=== PATIENT | female | born 2005 | race Caucasian/White ===

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

== ENCOUNTER 2025-01-25 05:29 | Emergency (ER) | payer OTHER, SELFPAY ==
--- OUTSIDE RECORDS SUMMARY | 2025-01-25 05:31 | XMS_ITS | Encounter Summary ---
Author Organization [facility] Address [address] [place] [address] Care Team Providers Care Sole Stitcher Hand Name Role Phone Yohan Jacinto MD Primary Care Provider [phone] Reason for Visit * Reason Onset Date Comments Concerns 04/16/2022 Encounter Details Date Type Department Care Team (Late st Contact Info) Description 04/16/2022 Telephone [facility] [place] [address] Nellie Mendes MD [address] [place] [phone] Concerns Social History Tobacco Use Types Packs/Day Years Used Date Smoking Tobacco: Passive Smo ke Exposure - Never Smoker Smokeless Tobacco: Never Comments No Sex and Gender Information Value Date Recorded Sex Assigned at Not on file Legal Sex Female 5:44 AM ANIMAL STUNNER Gender Identity Not on file Sexual Orientation [...] PM CDT No answer @ mom's number, VM is full so unable to LM. * [...] CDT No answer @ number left by momPEEWEE that we returned call * Telephone Encounter [...] on filedocumented in this encounter Care Teams Sole Stitcher Hand Relationship Specialty Start Date End Date Yohan Jacinto MD [address] [place] [address] PCP - General Pediatrics 02/05/22 documented as of this encounter
--- OUTSIDE RECORDS SUMMARY | 2025-01-25 05:31 | XMS_ITS | Clinical Summary ---
Author Organization [facility] Address [address] [facility] [place] [address] Care Team Providers Care Antenna Design Engineer Name Role Phone Yohan Jacinto MD Primary Care Provider [phone] Source Comments [facility],non-owned Affiliates and Associated Physician Practices is amultiple site organization consisting of ambulatory clinics and hospital sitesin [place], [place]. This disclosure is being madepursuant to the Care Everywhere program and may not contain all information available regarding this patient. Last updated 18.[facility] Allergies Active Allergy Reactions Criticality Noted Date [...] document. Alwaysverify current medications with the patient. 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 Gender Identity Not on file Sexual Orientation Not on file Last Filed Vital Signs Vital Sign Reading Time Taken Comments Blood Pressure 122/78 04/30/2022 9:44 AM CDT Pulse 57 02/22/2022 12:45 PM CDT Temperature 36.2 C (97.1 F) 02/22/2022 12:30 PM CDT Respiratory Rate 21 02/22/2022 12:4 [...] - 3-dose series) 2020 CHLAMYDIA/GONORRHEA SCREENING 2021 MENINGOCOCCAL (Group B) VACC INE SHARED DECISION-MAKING (1 of 2 - Standard) 2021 HEPATITIS C SCREENING 08/04/2023 COVID-19 VACCINE (1 - 2023-2 5 season) 2024 DTAP/TDAP/TD VACCINES (1 - Tdap) 2024 HEPATITIS B VACCINE (1 of 3 - 19+ 3-dose series) 2024 DEPRESSION SCREENING 09/16/2024 INFLUENZA VACCINE (Season Ended) 2025 ZOSTER VACCINE (1 of 2) 2055 HIB VACCINE Aged Out No longer eligi ble based on patient's age to complete this topic MENINGOCOCCAL GROUPS A/C/Y/W VACCINE Aged Out No longer eligible b ased on patient's age to complete this topic PNEUMOCOCCAL VACCINE Aged Out No long er eligible based on patient's age to complete this topic Insurance [facility] Care Teams Antenna Design Engineer Relationship Specialty Start Date End Date Yohan Jacinto MD [address] [place], [place] [id number] PCP - General Pediatrics 02/05/22
--- OUTSIDE RECORDS SUMMARY | 2025-01-25 05:31 | XMS_ITS | Data Portability ---
Author Organization [facility] [place] Address [address] [place] [address] Assessment No assessment recorded. Plan of Treatment Reminders Order Date Submit Date Provider Last Modified By Organization Details Last Modified Time Details Appointments None recorded. Lab hsv-2 igg Ab, serum 2024 025 [facility] (Lab), [address], [place], [address], 5 14:14:56 hsv (1+2) Ab, serum [address] (Lab), [address] [place], [address], 5 16:27:27 hsv (1+2) igm, serum [address] (Lab), [address] [place], [address], 5 16:27:27 hsv-1 igg Ab, serum 2024 025 [facility] (Lab), [address], [place], [address], 5 14:14:55 hsv-2 igg Ab, serum [address] (Lab), [address] [place], [address], 5 16:27:27 hbcab (hepatitis B core Ab) igm, serum 2024 025 [facility] (Lab), [address] [facility], [place], [address], 5 14:53:09 HBsAg (hepatitis B surface Ag), serum 2024 025 [facility] (Lab), [address] [facility] [facility], [place], [address], 5 14:53:07 hepatitis C virus Ab, serum 2024 025 [facility] (Lab), [address] [facility] [facility], [place], [address], 5 14:53:06 HIV 1+2 AB + HIV 1 p24 Ag, qualitative immunoassay , serum 2024 025 [facility] (Lab), [address] [facility], [place], [address], 5 14:53:08 RPR (rapid plasma reagin), serum 2024 025 [facility] (Lab), [address] [facility] [facility], [place], [address], 5 14:53:09 beta-HCG, quantitativ e, serum or plasma 2024 025 [facility] (Lab), [address] [facility] [facility], [place], [address], 5 14:53:07 test, urine 2024 025 fransico Solorzano, [address], [place], [address], 5 15:42:14 Referral None recorded. Procedures None recorded. Surgeries None recorded. Imaging None recorded. Medication Orders [facility]altrex 500 mg tablet 2024 025 [id number], [address] [facility] [address] [facility], [place], [place], [id number], 5 09:53:13 Valtrex 1 gram tablet 2024 025 [id number], [address], [place], [place], [id number], 5 09:53:22 Depo-Sound Printer a 150 mg/mL intramuscul ar suspension 2024 025 Not available 16:03:40 Depo-Sound Printer a 150 mg/mL intramuscul ar syringe 2024 025 [id number], [address] [place], [place], [id number], 5 15:33:25 Depo-Sound Printer a 150 mg/mL intramuscul ar suspension 2023 024 Not available 16:03:40 Patient TargetsNo targets recorded. Patient InstructionsNo instructions recorded. Reason for Referral None Reported. Results Created Date Observation Date Name Description Value Unit Range Abnormal Flag Note LastModifiedBy Organization Detail LastModifiedTime 10/27/1910/27/2024 CT/GC AND TRICH OMONA S VAGIN MANDEEP (RRNA ), URINE chlamydia trachomatis, PCR Negati ve negati ve Not Available [facility] (Lab) [address], [place], [address], 10/28/2024 14:48:08 10/27/19 25 10/27/2024 CT/GC AND TRICH OMONA S VAGIN MANDEEP (RRNA ), URINE neisseria gonorrhoeae, PCR Negati ve negati ve Not Available [facility] (Lab) [address], [place], [address], 10/28/2024 14:48:08 10/27/19 25 10/27/2024 CT/GC AND TRICH OMONA S VAGIN MANDEEP (RRNA ), URINE trichomonas vaginalis ribosomal RNA (rrna) Negati ve negati ve Not Available [facility] (Lab) [address] [facility], [place], [address], 10/28/2024 14:48:08 10/27/19 25 10/27/2024 HEPAT ITIS C ANTIB PERLA SCREE N, REFLE X TO CONFI RMATI ON hepatitis C antibody Non-re active non-re active Antib odies to HCV Not Detec amrita, does not exclu de the possi bilit y of expos ure to HCV. Not Available [facility] (Lab) [address] [facility] [facility], [place], [address], 10/28/2024 14:53:06 10/27/19 25 10/27/2024 HEPAT ITIS B SURFA CE ANTIG EN hepatitis B surface antigen Non-re active non-re active This assay was perfo rmed using [employer] reage nts and test kits. Value s obtai boni with other assay metho ds or kits canno t be used inter douglas eably . Not Available [facility] (Lab) [address] [place], [address], 10/28/2024 14:53:07 10/27/19 25 10/27/2024 BHCG, QUANT ITATI VE B-HCG <0.2 mIU/m L 0.0-4. 9 This assay was perfo rmed using [employer] reage nts and test kits. Value s obtai boni with other assay metho ds or kits canno t be used inter douglas eably . Refer ence Range s: Non-p regna nt, preme nopau yeison women : 0.0-4 .9 mIU/m L Postm enopa usal women : 0.0-7 .0 mIU/m L Josselyn l Pregn mariel: Gesta donavan l Age bHCG Conc. - mIU/m L 3 Weeks 5.8 - 71.7 4 Weeks 9.5 - 750 5 Weeks 217-7 138 6 Weeks 158 - 31,79 5 7 Weeks 3,697 - 162,5 63 8 Weeks 32,06 5 - 149,5 71 9 Weeks 63,80 3 - 151,4 10 10 Weeks 46,50 9 - 186,9 77 12 Weeks 27,83 2 - 210,6 12 14 Weeks 13,95 0 - 62,53 0 15 Weeks 12,03 9 - 70,97 1 16 Weeks 9,040 - 56,45 1 17 Weeks 8,175 - 55,86 8 18 Weeks 8,099 - 58,17 6 Not Available [facility] (Lab) [address] [facility], [place], [address], 10/28/2024 14:53:07 10/27/1910/27/2024 HIV 1/2 ANTIG EN/AN TIBOD Y, REFLE X CONFI RMATI ON HIV antigen/anti body Nonrea ctive nonrea ctive HIV-1 antig en and HIV-1 /HIV- 2 antib odies were not detec amrita. No labor atory evide nce of HIV infec tion. Not Available [facility] (Lab) [address], [place], [address], 10/28/2024 14:53:08 10/27/1910/27/2024 RPR SCREE N, REFLE X TITER /CONF IRMAT ION RPR screen Nonrea ctive nonrea ctive Not Available [facility] (Lab) [address], [place], [address], 10/28/2024 14:53:08 10/27/1910/27/2024 HEPAT ITIS B CORE, IGM hepatitis B core IgM antibody Non-re active non-re active IgM anti- HBc not detec amrita. Does not exclu de the possi bilit y of expos ure to or infec tion with HBV. Not Available [facility] (Lab) [address] [facility], [place], [address], 10/28/2024 14:53:09 10/27/19 25 10/27/2024 pregn mariel test, urine HCG negati ve Not Available [place], [place], [address], 10/27/2024 15:42:07 01/08/20 25 01/07/2025 HERPE S SMPLE X VIRUS TYPE 1 SPECI FIC AB, IGG herpes simplex virus 1 IgG Negati ve negati ve Not Available [facility] (Lab) [address] [facility] [facility], [place], [address], 01/08/2025 14:14:55 01/08/20 25 01/07/2025 HERPE S SMPLE X VIRUS TYPE 1 SPECI FIC AB, IGG herpes simplex virus 1 IgG, quant 0.2 ai 0.0-0. 8 Not Available [facility] (Lab) [address] [facility], [place], [address], 01/08/2025 14:14:55 01/08/20 25 01/07/2025 HERPE S SIMPL EX VIRUS TYPE 2 SPECI FIC AB, IGG herpes simplex virus 2 IgG Positi ve negati ve abnormal Not Available [facility] (Lab) [address] [facility] [facility], [place], [address], 01/08/2025 14:14:56 01/08/20 25 01/07/2025 HERPE S SIMPL EX VIRUS TYPE 2 SPECI FIC AB, IGG herpes simples virus 2 IgG, quant 3.5 ai 0.0-0. 8 high Not Available [facility] (Lab) [address] [place], [address], 01/08/2025 14:14:56 01/08/20 25 01/07/2025 CULTU RE: HSV/ VZV hsv culture/type Commen t abnormal Posit celestino for Herpe s simpl ex virus type- 2. Typin g was confi rmed by monoc lonal antib perla micro scopi c immun ofluo resce nce. Not Available [facility] (Lab) [address] [place], [address], 01/16/2025 11:12:07 01/08/20 25 01/07/2025 CULTU RE: HSV/ VZV viral culture, rapid,varice lla Commen t Herpe s simpl ex virus was isola amrita and confi rmed by fluor escen t antib perla stain ing. The isola tion of Varic chase- Zoste r virus from this cultu re is not possi ble due to the growt h of Herpe s simpl ex virus . This does not rule out the possi bilit y of Varic chase- Zoste r virus infec tion. Not Available [facility] (Lab) [address], [place], [address], 01/16/2025 11:12:07 Result Notes None recorded. Procedures Surgical History Date Name Laterality Status Provider Name and Address Organization Details Recorded Time 10/23/19 23 Nexplanon Removal completed Rachel Willett [facility] 10/23/2022 17:41:29 03/21/20 21 Control Implant Insertion completed Delmy Peña [facility] 03/21/2021 16:49:41 appendectomy completed Mindy Krishnamurthy [facility] 10/27/2024 14:54:39 Imaging Results None recorded. Procedure Notes None recorded. Medical Equipment None Reported. Allergies No known drug allergies Medications Name Sig Start Date Stop Date Status Note LastModified by Organization Details LastModified Time cyclobenz aprine 10 mg tablet 10/27 completed Not Available Not Available Not Available amoxicill in 500 mg capsule 10/27 completed Not Available Not Available Not Available doxycycli ne hyclate 100 mg capsule TAKE 1 CAPSULE BY MOUTH TWICE DAILY FOR 10 DAYS 10/27 completed Not Available Not Available Not Available fluconazo le 150 mg tablet TAKE 1 TABLET BY MOUTH TODAY AND 1 TABLET IN 5-7 DAYS 10/27 completed Not Available Not Available Not Available valacyclo vir 1 gram tablet TAKE 1 TABLET BY MOUTH EVERY 12 HOURS 01/22 completed Not Available Not Available Not Available clarithro mycin 500 mg tablet 10/27 completed Not Available Not Available Not Available ondansetr on HCl 4 mg tablet 10/27 completed Not Available Not Available Not Available metronida zole 500 mg tablet 03/21 completed Not Available Not Available Not Available levofloxa norma 250 mg tablet TAKE 1 TABLET BY MOUTH DAILY FOR 3 DAYS 10/27 completed Not Available Not Available Not Available sulfameth oxazole 800 mg-trimet hoprim 160 mg tablet TAKE 1 TABLET BY MOUTH TWICE DAILY FOR 3 DAYS 10/27 completed Not Available Not Available Not Available omeprazol e 40 mg capsule,d elayed release 10/27 completed Not Available Not Available Not Available cyprohept adine 4 mg tablet 10/27 completed Not Available Not Available Not Available ziprasido ne 20 mg capsule 10/27 completed Not Available Not Available Not Available Depo-Prov era 150 mg/mL intramusc ular suspensio n Inject 1 mL every 3 months by intramus cular route. 01/07 completed Not Available Not Available Not Available benzonata te 100 mg capsule TAKE 1 CAPSULE BY MOUTH THREE TIMES DAILY FOR 10 DAYS 10/27 completed Not Available Not Available Not Available pantopraz ole 40 mg tablet,de layed release 10/27 completed Not Available Not Available Not Available sertralin e 25 mg tablet 03/21 completed Not Available Not Available Not Available Valtrex 500 mg tablet Take 1 tablet every day by oral route. 2024 active Not Available Not Available Not Avai lable ondansetr on 4 mg disintegr ating tablet 03/21 completed Not Available Not Available Not Available sertralin e 50 mg tablet 10/27 completed Not Available Not Available Not Available risperido ne 1 mg tablet TAKE ONE TABLET BY MOUTH EVERY DAY. 10/27 completed Not Available Not Available Not Available risperido ne 0.5 mg tablet TAKE ONE TABLET BY MOUTH EVERY NIGHT AT BEDTIME 10/27 completed Not Available Not Available Not Available amoxicill in 875 mg-potass ium clavulana te 125 mg tablet TAKE 1 TABLET BY MOUTH EVERY 12 HOURS FOR 7 DAYS 10/27 completed Not Available Not Available Not Available hydroxyzi ne pamoate 25 mg capsule 10/27 completed Not Available Not Available Not Available medroxypr ogesteron e 150 mg/mL intramusc ular syringe ADMINIST ER 1 ML IN THE MUSCLE EVERY 3 MONTHS active Not Available Not Available No t Available aripipraz ole 10 mg tablet 03/21 completed Not Available Not Available Not Available aripipraz ole 15 mg tablet 10/27 completed Not Available Not Available Not Available cyclobenz aprine 5 mg tablet 10/27 completed Not Available Not Available Not Available Depo-SubQ provera 104 104 mg/0.65 mL subcutane ous syringe Inject 0.65 mL every 3 months by subcutan eous route. 10/27 completed depo injectio n (supplie d by patient from pharmacy ) given into right hip lot [id number] Exp 01/2025 Not Available Not Available Not Available aripipraz ole 2 mg tablet TAKE 1 TABLET BY MOUTH DAILY 10/27 completed Not Available Not Available Not Available Nexplanon 68 mg subdermal implant Inject by subcutan eous route. 10/23 completed Not Available Not Available Not Available Vitals Date Recorded Body height Body mass index (BMI) Body mass index (BMI) [Percentile] Per age and sex Body weight Systolic blood pressure Diastolic blood pressure Provider Name and Address Organization Details Last Updated DateTime 5 167.64 cm 30.8 kg/m2 95 % 70091.4 2 g 116 mm[Hg] 82 mm[Hg] Mindyjessica Pageney [facility] 5 14:50:25 Date Recorded Body height Body mass index (BMI) [Percentile] Per age and sex Body mass index (BMI) Body weight Systolic blood pressure Diastolic blood pressure Provider Name and Address Organization Details Last Updated DateTime 5 167.64 cm 95 % 30.7 kg/m2 11349.5 5 g 116 mm[Hg] 82 mm[Hg] Harper Sorto [facility] 5 17:32:55 Date Recorded Body height Body mass index (BMI) [Percentile] Per age and sex Body mass index (BMI) Body weight Systolic blood pressure Diastolic blood pressure Provider Name and Address Organization Details Last Updated DateTime 5 167.64 cm 93 % 29.7 kg/m2 98840 g 155 mm[Hg] 102 mm[Hg] Joyce Soares [facility] 5 16:03:23 Date Recorded Body height Body mass index (BMI) [Percentile] Per age and sex Body mass index (BMI) Body weight Systolic blood pressure Diastolic blood pressure Provider Name and Address Organization Details Last Updated DateTime 5 167.64 cm 93 % 29.7 kg/m2 83682 g 118 mm[Hg] 77 mm[Hg] Mindy Krishnamurthy [facility] 5 16:52:06 Social History Question Answer Notes LastModified by Organizat ion Details LastModified Time Tobacco Smoking Status Never Smoker Delmy Peña david, [facility] 03/21/2021 15:44:00 Are You Blind Or Do You Have Difficulty Seeing? No Information n ot available 03/21/2021 What Is Your Level Of Caffeine Consumption? Occasional Information not available 03/21/2021 In The 14 Days Before Symptom Onset, Have You Had Close Contact With A Laboratory-confirm ed COVID-19 While That Case Was Ill? No Information n ot available 01/07/2025 In The 14 Days Before Symptom Onset, Have You Had Close Contact With A Person Who Is Under Investigation For COVID-19 While That Person Was Ill? No Information not available 01/07/2025 Have You Been To An Area Known To Be High Risk For COVID-19? No Information not available 01/07/2025 Are You Deaf Or Do You Have Serious Difficulty Hearing? No Information not available 03/21/2021 What Type Of Diet Are You Following? REGULAR Information n ot available 03/21/2021 Which Illicit Or Recreational Drugs [...] LastModified by Organizat ion Details LastModified Time Do you use any illicit or recreational drugs? Yes Information not available 03/21/2021 What is your level of alcohol consumption? None Information not available 03/21/2021 Are you able to walk? YESWOREST Information not available 03/21/2021 What is your exercise level? Occasional Information not available 03/21/2021 Mental Status Question Answer Note LastModified by Organization D etails LastModified Time Do you feel stressed (tense, restless, nervous, or anxious, or unable to sleep at night)? [id number] Information not available 03/21/2021 Family History Relationship Description Onset Age of this Age Resolved Age Notes LastModified by Organization Details LastModified Time Maternal Grandmother Malignant tumor of breast Not available 2020 15:17:17 Maternal Grandfather Malignant neoplasm of lung Not available 2020 15:17:31 Medical History Condition Response Allergies (Food, seasonal, environmental ) N Other N Blood Transfusion N Drug/Latex Allergies/Reactions N Breast Cancer N Dermatologic Disorders N Lung Disease N Defects or Inherited Disease N Breast Problem N Gestational Diabetes N Hematologic disorders N Anesthesia Complications N History of STI Y Deep Vein Thrombosis N Polycystic ovary syndrome [...] N Thrombophilias N Gynecological History Statement/Question Response Date of Last Colonoscopy Date of Last Mammogram Date of LMP Sexually Active? Y Menses Monthly N Date of DEXA bone scan STIs/STDs Yes Age of first menstrual cycle 11 HPV Vaccine Y Date of Last Pap Smear Current Control Method Depo-Sound Printer a 12 Desired Control Method Obstetrics History GPAL:G 0 P 0 0 0 0 Type Value Living 0 Total 0 Past Encounters Encounter ID Performer Location Encounter Start Date Encounter Closed Date Diagnosis/Indication Diagnosis SNOMED-CT Code Diagnosis ICD10 Code Diagnosis Note [id number] Cheryl Manuelhannah [facility] [address] [address] 03/21/2021 15:01:14 03/23/2021 11:03:05 Screening procedure 62999155 Z13.9 Secondary dysmenorrhea 59540135 N94.5 Interested in Nexplanon for period regulation & control. She is NEVER SA up to this point.Want ing Nexplanon. Discussed all control options in depth and pt is interested in Nexplanon. Discussed all risks and benefits including irregular unschedule d bleeding. Pt verbalized understand ing and would like to proceed. She is aware that she needs to call us on the 1st day of her period to schedule placement. We agreed to proceed with nexplanon if UPT is neg.Declin es need STD screening since NEVER SA per pt Implantati on of subcutaneous contraceptive 966589735 Z30.9 Patient is here currently on her menses. She was given all the r/b/a of placement of the Nexplanon device and has signed the consent. She is fully aware of all possible side effects of the device and has decided to move forward with placement. Insertion site was cleansed with betadine and 3cc lidocaine used for anesthesia . Device was placed in the left arm per usual fashion w/o complicati on and patient instructed to f/u in one month or earlier if there are any si/sx of infection or hypersensi tivity at the insertion site RTO x3mos med check [id number] Rachel Willett CN[facility] [place] [address] [address] 10/23/2022 17:10:08 10/23/2022 17:45:32 Removal of subcutaneous contraceptive 164081409 Z30.46 Nexplanon removed without difficulty . Watch and call for any s/s of infection. Contracept ion care management 827141280 Z30.9 Discussed all options. Pt would like depo provera. Discussed risks including delayed return to fertility, abnormal bleeding, loss of bone density, and weight gain. Pt would like to proceed with injection. She will return tomorrow morning for injection. [id number] My Benjamin CNM [place] [address],[place] [address] 10/15/2023 14:29:38 10/16/2023 08:34:45 Contraception care 897441897 Z30.40 [id number] Rosanna No [facility] [address],[place] [address] 01/02/2024 16:10:34 01/02/2024 16:38:03 Contraception care management 184973763 Z30.9 [id number] Rosanna No [facility] [address],[place] [address] 03/24/2024 14:30:50 03/24/2024 14:45:41 Contraception care management 751348153 Z30.9 [id number] Rosanna No [facility] [address],[place] [address] 10/27/2024 14:31:59 10/27/2024 16:06:28 Contraception care management 897497375 Z30.9 All BC options discusseds he would like to restart Depo-Prove rar/b/a reviewed (including risk of weight gain and possible bone density loss)pt aware of possible delay in return of fertility post discontinu ing Depo Provera, can take 12-18 months for fertility to return in addition can take average couple under the age of 35 12 months of timed IC to achieve once fertility has returnedrx sent to pharmacy, she will return for injections afe sexual practices discussed, STI testing sent, questions answered Time spent in visit is a total of 25 mins with at least 50% of visit consisting of counseling and review of plan of care. Venereal d isease screening 771956801 Z11.3 Sexually t ransmitted infectious disease 5025694 A64 [id number] KRISHNA CANO MD [place] [address],[place] [address] 10/29/2024 17:23:18 10/29/2024 17:35:54 Contraception care management 110698816 Z30.9 [id number] Arvind Gonzalez MD [place] [address] [address] 01/07/2025 14:48:23 01/08/2025 08:46:19 Sexually transmitted infectious disease 3607305 A64 19-year-ol d female with painful posterior fourchette of the vagina. It has been present for 4 days. Intercours e is painful. She has some white vaginal discharge. She denies any odor. She was examined. There are a cluster of small ulcers near the posterior fourchette on the left side. I am concern for HSV. Swab were taken. Blood testing will be performed. I spent over 30 minutes on the patient's care in total. We will contact her with The results. Medication was prescribed . We talked about the risks, benefits, and alternativ es. She is given precaution s and instructio ns. [id number] IDRIS Macdonald [place] [address] [address] 01/21/2025 16:16:45 01/22/2025 11:34:56 Genital herpes simplex 20205716 A60.00 Discussed HSV in-depth todayquest ions answeredop ts for suppressiv e therapyrx sent, r/b/a reviewedDi scussed the various types of STIs, related symptoms and the potential consequenc es (including effects on fertility) of STI infections . Reviewed ways to limit exposure and prevention techniques . Time spent in visit is a total of 20 mins with at least 50% of visit consisting of counseling and review of plan of care. Contracept ion care management 094139870 Z30.9 Discussed with patient risks, benefits, and alternativ es of contracept ion. Discussed all options, including natural family planning, condoms, combined oral contracept my, contracept celestino patch, Nuva-ring, Depo-Prove ra, Nexplanon, intrauteri ne device, and sterilizat ion (tubal ligation, vasectomy) . Advised that of the above listed options, only condoms can prevent sexually transmitte d infections and that condoms can be used together with any form of contracept ion. Health Concerns Section Related Observation LastModified by Organization Detai ls LastModified Time None Recorded Concern Status LastModified by Organization Details LastModified Time None Recorded Advance Directives Directive None Recorded Payers Encounter Date Sequence Insurance Name Policy Number Policy Reyes Covered Member ID Reyes Member ID Guarantor Name 03/24/2024 1 [facility] (MEDICAID HMO) [id number] Sarika Warners [id number] Sarika Warners-Mary 10/27/2024 1 [facility] (MEDICAID HMO) [id number] Sairka Warners [id number] Sarika Warners-Mary 10/29/2024 1 [facility] (MEDICAID HMO) [id number] Sarika Warners [id number] Sarika Warners-Mary 01/07/2025 1 [facility] (MEDICAID HMO) [id number] Sarika Warners [id number] Sarika Warners-Mary 01/21/2025 1 [facility] (MEDICAID HMO) [id number] 0003 Sarika Warners [id number] Sarika Warners-Mary Notes Date Note Type Note Provider Name and Address Organization Details Recorded Time 10/27/2024 text/html 19yo [id number] for BC consultcurrently using condoms, has not had any unprotected IC in the last 2 weeksh/o chlamydia 2 months ago, had negative SAVITA recently. Would like STI testing done todaywas previously on Depo Provera, int in restartinglast injection 03/2024, has not had a period since, has questions about future fertility IDRIS Macdonald [address], [place], [address], [facility] 10/27/2024 15:42:58 01/07/2025 text/html 19-year-old fema le with painful posterior fourchette of the vagina. It has been present for 4 days. New Home is painful. She has some white vaginal discharge. She denies any odor. She was examined. There are a cluster of small ulcers near the posterior fourchette on the left side. I am concern for HSV. Swab were taken. Blood testing will be performed. I spent over 30 minutes on the patient's care in total. We will contact her with The results. Medication was prescribed. We talked about the risks, benefits, and alternatives. She is given precautions and instructions. Arvind Gonzalez MD 2016 [address], [place], [address], , [facility] 01/07/2025 16:30:35 01/21/2025 text/html 19yopresents to discuss HSV suppressive therapyprimary HSV outbreak 01/07/2025symptoms have since resolvedhas questions about HSV today and desires suppressive therapy currently on Depo for BC, would like to discuss options IDRIS Macdonald [address], [place], [address], , [facility] 01/22/2025 09:56:07 OBGyn Episode No OBEpisode recorded.
--- OUTSIDE RECORDS SUMMARY | 2025-01-25 05:31 | XMS_ITS | Patient Health Record ---
Author Organization [facility] Address [address] [place] [address] Care Team Providers Care Development Trainer Name Role Phone Shelbi Kam Primary Care Provider [phone] Allergies No Known Allergies Reason For Referral No Information Medications Medication [...] W/U Status Risk Notes Problem Tobacco user (174069460) Nicotine dependence, unspecified, uncomplicated (F17.200) Active confirmed Problem Disruptive mood dysregulation disorder (921796583) DMDD (disruptive mood dysregulation disorder) (F34.81) 01/15/20 Active confirmed Encounters Encounter Location Date Provider Diagnosis [facility] [address] [place] [address] 02/04/2024 Shelbi Kam DMDD (disruptive moo d dysregulation disorder) F34.[address] [facility] [place] [address] 03/05/2024 Shelbi Kam [address] [place] [address] 03/11/2024 Shelbivalencia Kam Assessments Encounter Date Diagnosis (ICD Code) Assessment Notes Treatment Notes Treatment Clinical Notes Section Notes 02/04/2024 DMDD (disruptive mood dysregulation disorder) (ICD-10 - F34.81) Continue current medications. Continue services as scheduled. Labs completed recently. May self-administer medications or be administered own oral medications per [facility] protocols. Provided informed consent with understanding of [...] Insured Coverage Start Date Coverage End Date [employer] [address] [place] [address] [id number] Sarika Alcala Self - patient is the insured 3 [employer] [address] [place] [address] [id number] Sarika Alcala Self - patient is the insured 3 Medical (General) History Medical History History ICD Code attention deficit disorder attention deficit hyperactivity disorder - hyperactive/impsulsive Surgical History Surgery Date(Month/Year) appendectomy Hospitalization History Reason Date(Month/Year)
[2025-01-25 05:34] VITALS: BP 120/100; PULSE 101; RESP 20; TEMP 36.6; O2SAT 98
--- NOTE | 2025-01-25 05:49 | ED.GENADULT ---
HPI - General Adult General Chief complaint: Allergic Reaction Stated complaint: allergic reaction Time Seen by Provider: 01/25/25 05:33 History of Present Illness HPI narrative: This is a 19-year-old female presenting with allergic reaction. She has woken up from sleep with itching on her abdomen. She developed urticarial hives. She also has swelling of her upper lip. No wheezing, nausea vomiting or diarrhea. No stridor or difficulty breathing. No swelling of the tongue or uvula. No history of anaphylactic reactions. She has had URI symptoms over the last week. Related Data Home Medications ?Medication ?Instructions ?Recorded ?Confirmed ?Last Taken ?Type aripiprazole 10 mg tablet mg 06/22/20 Unknown History pantoprazole 40 mg tablet,delayed PO 06/22/20 Unknown History release sertraline 50 mg tablet mg 06/22/20 Unknown History Allergies Allergy/AdvReac Type Severity Reaction Status Date / Time No Known Allergies Allergy Verified 01/25/25 05:46 [facility] Past Medical History Medical History H. pylori infection Suicide attempt by drug overdose Ibuprofen - Admitted [place] Depression Surgical History Surgical History History of appendectomy Social History Social History Smoking status: Never smoker Gender identity (if verbalized by the patient): Female Exam Narrative: APPEARANCE: No apparent distress. Head: Swelling of the upper and lower lip. No swelling of the tongue or uvula EYES: EOMI, NOSE: Atraumatic NECK: Trachea midline RESPIRATORY: No increased rate of breathing no wheezing CARDIOVASCULAR: RRR, ABDOMINAL: Non-distended MUSCULOSKELETAl: No obvious deformities NEURO: Alert. Moving 12/18 extremities SKIN:: Urticarial rash over the abdomen PSYCHIATRIC: Normal affect Course Vital Signs Vital signs: Vital Signs Temperature 97.9 F 01/25/25 05:34 Pulse Rate 101 H 01/25/25 05:34 Respiratory Rate 20 01/25/25 05:34 Blood Pressure 120/100 H 01/25/25 05:34 Pulse Oximetry 98 01/25/25 05:34 Oxygen Delivery Room Air 01/25/25 05:34 Temperature 97.9 F 01/25/25 05:34 Pulse Rate 108 H 01/25/25 06:01 Respiratory Rate 20 01/25/25 06:01 Blood Pressure 130/94 H 01/25/25 06:01 Pulse Oximetry 100 01/25/25 06:01 Oxygen Delivery Room Air 01/25/25 05:59 Medical Decision Making MDM Narrative Medical decision making narrative: -Course: 19-year-old female presenting with an allergic reaction. She has angioedema of the lips but not tongue or throat. She also has some cutaneous hives in the abdomen. Patient was given dexamethasone, benadryl, famotidine. No clear allergic trigger. She has had a viral URIs so this may be viral urticaria/angioedema. Patient improved after the initial medications. She did not want to wait for the 4 hour observation. She says she gets home to watch her siblings or brother could go to work. He was given RX and instructions on how to treat allergic reactions including when she Benadryl when to use an EpiPen. Patient has left AMA. -DDX includes but is not limited to: Allergic reaction, viral urticaria Vital Signs Vital Signs: Vital Signs Temperature 97.9 F 01/25/25 05:34 Pulse Rate 101 H 01/25/25 05:34 Respiratory Rate 20 01/25/25 05:34 Blood Pressure 120/100 H 01/25/25 05:34 Pulse Oximetry 98 01/25/25 05:34 Oxygen Delivery Room Air 01/25/25 05:34 Temperature 97.9 F 01/25/25 05:34 Pulse Rate 108 H 01/25/25 06:01 Respiratory Rate 20 01/25/25 06:01 Blood Pressure 130/94 H 01/25/25 06:01 Pulse Oximetry 100 01/25/25 06:01 Oxygen Delivery Room Air 01/25/25 05:59 Discharge Plan Discharge Clinical Impression: Urticaria, Angioedema Patient Disposition: Home Condition: Stable Instructions: Antibiotic Form, Urticaria (ED) Additional Instructions: You were seen in the emergency department for an allergic reaction. Please use Benadryl as needed for itching or swelling. If you develop swelling of your throat, difficulty breathing, lightheadedness please use the EpiPen and return to the emergency department immediately. Patient Language: Macedonian Prescriptions: New diphenhydramine HCl [Aler-Cap] 25 mg capsule 25 mg PO TID PRN (Reason: allergy symptoms) Qty: 60 0RF epinephrine 0.3 mg/0.3 mL auto-injector 0.3 mg IM ONCE Qty: 2 0RF Rx Instructions: as a single dose; may repeat once No Action pantoprazole 40 mg tablet,delayed release (DR/EC) PO sertraline 50 mg tablet aripiprazole 10 mg tablet ondansetron 4 mg tablet,disintegrating 4 mg PO Q8H PRN (Reason: nausea and vomiting) Qty: 12 0RF cyclobenzaprine 5 mg tablet 5 mg PO BID PRN (Reason: muscle spasm) 14 Days Qty: 14 0RF Follow-up/Referrals: Yohan Jacinto MD [Physician] -
[2025-01-25] MEDS: dexAMETHasone SOD PHOS INJ 10 MG/ML 1 ML VIAL IV PUSH (05:50)
[2025-01-25] MEDS: diphenhydrAMINE HCl INJ 50 MG/ML VIAL IV PUSH (05:51)
[2025-01-25] MEDS: FAMOTIDINE 20 MG/2 ML VIAL 40 MG IV PUSH (05:51)
[2025-01-25 05:57] VITALS: PULSE 106; RESP 17; O2SAT 100
[2025-01-25 05:59] VITALS: O2SAT 98
[2025-01-25 06:00] VITALS: BP 130/94; PULSE 102; RESP 19; O2SAT 100
[2025-01-25 06:01] VITALS: BP 130/94; PULSE 104; PULSE 108; RESP 16; RESP 20; O2SAT 100
--- OUTSIDE RECORDS SUMMARY | 2025-01-25 06:11 | XMS_ITS | Encounter Summary ---
Author Organization [facility] Address [address] [address] Care Team Providers Care Rn Neonatal Name Role Phone Yohan Jacinto MD Primary Care Provider [phone] Reason for Visit * Reason Onset Date Comments Concerns 04/16/2022 Encounter Details Date Type Department Care Team (Late st Contact Info) Description 04/16/2022 Telephone [facility] [place] [address] Nellie Mendes MD [address] [place] [phone] Concerns Social History Tobacco Use Types Packs/Day Years Used Date Smoking Tobacco: Passive Smo ke Exposure - Never Smoker Smokeless Tobacco: Never Comments No Sex and Gender Information Value Date Recorded Sex Assigned at Not on file 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
--- OUTSIDE RECORDS SUMMARY | 2025-01-25 06:11 | XMS_ITS | Clinical Summary ---
Author Organization [facility] Address [address] [place] [address] Care Team Providers Care Director Of Group Counseling Program Name Role Phone Yohan Jacinto MD Primary Care Provider [phone] Source Comments [facility],non-owned Affiliates and Associated Physician Practices is amultiple site organization consisting of ambulatory clinics and hospital sitesin [place], [place], [place] and [place]. This disclosure is being madepursuant to the Care Everywhere program and may not contain all information available regarding this patient. Last updated 18.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
[2025-01-25 06:15] VITALS: PULSE 86; RESP 16
== END 2025-01-25 06:47 | disposition home or self-care (01) ==
PROVIDERS: Emergency Provider Emergency Medicine
DX: T78.3XXA Angioneurotic edema, initial encounter (principal); F32.A Depression, unspecified
CPT/HCPCS: 96374; 96375; 99284; J1100; J1200; J2919